=== PATIENT | female | born 1955 | race Caucasian/White ===

== ENCOUNTER 2017-04-05 06:50 | Day surgery (SDC) | payer BC ==
[~2017-04-05 06:50] MED LIST: CLINDAMYCIN PHOSPHATE 600 MG in DEXTROSE 5 % IN WATER 100 ML IV PRN; RINGER'S SOLUTION,LACTATED 1,000 ML IV PRN
[2017-04-05] MEDS ORDERED: LIDOCAINE HCL 50 ML VIAL IJ ONE (08:05)
[2017-04-05] MEDS ORDERED: BUPIVACAINE HCL 50 ML VIAL IJ ONE (08:05)
[2017-04-05 10:43] VITALS: BP 115/78
== END 2017-04-05 06:51 | disposition home or self-care (01) ==
LOC: AMB 06:50
PROVIDERS: ATTEND Student in an Organized Health Care Education/Training Program
PROC: 0QSR04Z Reposition Left Toe Phalanx with Internal Fixation Device, Open Approach (ICD-10-PCS; 2017-04-05)
PROC: 0HTRXZZ Resection of Toe Nail, External Approach (ICD-10-PCS; 2017-04-05)
PROC: 0QSP04Z Reposition Left Metatarsal with Internal Fixation Device, Open Approach (ICD-10-PCS; principal; 2017-04-05 08:00)
DX: M21.612 Bunion of left foot (principal); B35.1 Tinea unguium; D64.9 Anemia, unspecified; F41.9 Anxiety disorder, unspecified; Z68.22 Body mass index [BMI] 22.0-22.9, adult

== ENCOUNTER 2017-05-12 05:54 | Day surgery (SDC) | payer BC ==
[2017-05-12] MEDS ORDERED: RINGER'S SOLUTION,LACTATED 1,000 ML IV PRN ×2 (06:00→07:30)
[2017-05-12 08:27] VITALS: BP 111/61
--- NOTE | 2017-05-12 17:16 | OR ---
Operative Report - Dictated Report Narrative: OPERATIVE REPORT DATE OF OPERATION: 05/12/2017 PREOPERATIVE DIAGNOSIS: No recent dedicated colon studies POSTOPERATIVE DIAGNOSIS: 2 mm rectal polyp (pathology pending). Sigmoid diverticulosis OPERATION: Colonoscopy with hot biopsy forceps polypectomy in the rectum SURGEON: Laura Leroy MD ANESTHESIA: MICHELLE Vergara CRNA INDICATIONS FOR PROCEDURE: The patient is a 61-year-old female referred by Dr. Hammonds. The patient's last colonoscopy in 2006 revealed diverticulosis. She has had recent constipation after taking pain medicine after surgery. FINDINGS: 2 mm rectal polyp (pathology pending). Sigmoid diverticulosis otherwise normal exam to the cecum NARRATIVE OF PROCEDURE: The patient was identified in the holding area, and prior to the administration of anesthetic, a multidisciplinary timeout was observed. With the patient in the left lateral position and after the administration of intravenous sedation, the perineum was inspected. There was no evidence of pilonidal disease or skin breakdown. The external appearance of the anus was normal. Sphincter tone was good. The flexible fiberoptic colonoscope was inserted into the rectum which was insufflated with air. There was a 2 mm area of polypoid change which was biopsied and then thoroughly destroyed with electrocautery. The site was seen to be completely hemostatic. The rectal mucosa and submucosal vascular pattern appeared otherwise normal, the prep was seen to be complete. The scope was advanced through the sigmoid colon, which contained numerous small non-impacted noninflamed diverticular openings. Scope was advanced up the descending colon, and around the splenic flexure where the triangular haustral architecture of the transverse colon was seen. The scope was advanced across the transverse colon, around the hepatic flexure to the cecum, where the confluence of tenia and the ileocecal valve were identified. The mucosa at this level appeared normal. The scope was then slowly withdrawn in a circular fashion so that all aspects of colonic mucosa were inspected. The colon was normal in course and caliber. The haustral architecture appeared well preserved throughout with no evidence of external compression. The mucosa and submucosal vascular pattern appeared normal, specifically there was no gross evidence to suggest colitis or inflammatory bowel disease and no AV malformations were seen. The diverticulosis was mild in degree and confined primarily to the sigmoid colon. No polyps proximal to the rectum were encountered. The scope was gradually withdrawn to the level of the rectum. As much insufflated air as possible was removed. The scope was withdrawn from the patient and the procedure terminated. The patient tolerated the anesthetic and procedure well without complication and was transferred back to the ambulatory surgery area awake and in stable condition. The patient remained stable throughout a period of postoperative observation. She denied abdominal discomfort, was able to tolerate by mouth intake, and was up without assistance. I shared the operative findings with the patient and she was given copies of the photographs which appear in the medical record. She was discharged home with instructions not to engage in hazardous activity today , but may resume normal activity tomorrow, and advance diet as tolerated. She is to continue those medications as listed in the history and physical exam. I made arrangements to contact her with the biopsy reports and will make additional recommendations for treatment and follow-up based upon those results. Reviewed and electronically signed
== END 2017-05-12 05:55 | disposition home or self-care (01) ==
LOC: AMB 05:54
PROVIDERS: ATTEND Surgery
PROC: 0DBP8ZX Excision of Rectum, Via Natural or Artificial Opening Endoscopic, Diagnostic (ICD-10-PCS; principal; 2017-05-12 07:00)
DX: Z12.11 Encounter for screening for malignant neoplasm of colon (principal); K62.1 Rectal polyp; K57.30 Diverticulosis of large intestine without perforation or abscess without bleeding; F41.1 Generalized anxiety disorder; Z68.22 Body mass index [BMI] 22.0-22.9, adult

== ENCOUNTER 2017-08-17 09:20 | Day surgery (SDC) | payer BC ==
[~2017-08-17 09:20] MED LIST changes: -CLINDAMYCIN PHOSPHATE 600 MG in DEXTROSE 5 % IN WATER 100 ML IV PRN
[2017-08-17] MEDS ORDERED: RINGER'S SOLUTION,LACTATED 1,000 ML IV ONE (10:04)
--- NOTE | 2017-08-17 11:47 | OR ---
Operative Report - Dictated Report Narrative: Date: 08/17/2017 Preop diagnosis: Epigastric and retrosternal pain. Family history of gastric CA x 2. Possible gastric mass by CT. Postop diagnosis: Small sliding hiatal hernia Procedure: Esophagogastroduodenoscopy with biopsy Surgeon: Joseph Shin MD Anesthesia: MAC per [employer] EBL: minimal Specimens: Antral CLOtest. Incisura angularis Description: After informed consent by block was inserted and IV sedation was administered per [employer]. A flexible video endoscope was inserted through the bite block, through the posterior pharynx, and into the esophagus under direct vision. The scope was then advanced to the third portion of the duodenum. The duodenum was grossly normal without ulceration. The scope was withdrawn into the stomach. There is no gastritis or ulcers noted. A cold forceps biopsy of the antrum for CLOtest was performed and a biopsy of the incisura angularis was performed with cold forceps for anatomic pathology. The stomach was inspected and was normal. Retroflexion of the scope within the stomach revealed a small sliding hiatal hernia. Endoscope was withdrawn into the distal esophagus. The Z line was normal. No abnormalities were seen. The remainder esophagus was unremarkable. The patient tolerated the procedure well and was discharged from the endoscopy suite in stable condition. Recommendations: Continue acid suppression. Repeat EGD will be when necessary.
[2017-08-17 12:24] VITALS: BP 128/74
== END 2017-08-17 09:21 | disposition home or self-care (01) ==
LOC: AMB 09:20
PROVIDERS: ATTEND Specialist
PROC: 0DB68ZX Excision of Stomach, Via Natural or Artificial Opening Endoscopic, Diagnostic (ICD-10-PCS; principal; 2017-08-17)
DX: K29.70 Gastritis, unspecified, without bleeding (principal); K44.9 Diaphragmatic hernia without obstruction or gangrene; F41.1 Generalized anxiety disorder; Z80.0 Family history of malignant neoplasm of digestive organs; Z68.22 Body mass index [BMI] 22.0-22.9, adult